=== PATIENT | female | born 1955 | race Caucasian/White ===

== ENCOUNTER 2022-01-09 05:36 | Emergency (ER) | payer MEDICARE, BC ==
[2022-01-09] MEDS ORDERED: Ondansetron 4 MG Tab.DIS PO ONE (05:56)
[2022-01-09] MEDS ORDERED: Meclizine 25 MG Tab PO ONE (05:56)
[2022-01-09 06:51] LABS: CORONAVIRUS COVID-19 NAA POSITIVE (NEGATIVE)
[2022-01-09] MEDS ORDERED: Hydrochlorothiazide 12.5 MG Cap PO SCH (07:00)
[2022-01-09] MEDS ORDERED: Lisinopril 10 MG Tab PO SCH (07:00)
== END 2022-01-09 08:14 | disposition home or self-care (01) ==
LOC: JP.ED 05:36
DX: U07.1 COVID-19 (principal); I10 Essential (primary) hypertension; R73.9 Hyperglycemia, unspecified; Z79.899 Other long term (current) drug therapy
CPT/HCPCS: 0241U; 36415; 70450; 80048; 85025; 93005; 99284; A9270; Q0162

== ENCOUNTER 2022-01-10 13:15 | Inpatient (IN) | payer MEDICARE, BC ==
[2022-01-10 15:11] LABS: ESTIMATED GFR 70 mL/min (>60)
[2022-01-10] MEDS ORDERED: Sodium Chloride 0.9% 100 ML IV SCH (15:45)
[2022-01-10] MEDS ORDERED: Iopamidol 755 Mg/ML 100 ML Bottle IV SCH (15:45)
[2022-01-10] MEDS ORDERED: Aspirin 325 MG Tab.EC PO ONE (17:13)
[2022-01-10] MEDS ORDERED: Sodium Chloride 0.9% 1,000 ML IV SCH (17:15)
[2022-01-10] MEDS: Clopidogrel 75 MG Tab PO SCH (17:36)
[2022-01-10] MEDS: Aspirin 325 MG Tab.EC PO SCH (17:36)
[2022-01-10] MEDS ORDERED: Sodium Chloride 0.9% 10 ML Syringe FLUSH PRN (18:03)
[2022-01-10] MEDS ORDERED: Ondansetron 4 MG/2 ML SDV IV PRN (18:03)
[2022-01-10] MEDS ORDERED: Melatonin 3 MG Tab PO PRN (20:01)
[2022-01-10] MEDS: Meclizine 25 MG Tab PO PRN (22:49)
[2022-01-11] MEDS: Clopidogrel 75 MG Tab PO SCH (09:16)
[2022-01-11] MEDS: Hydrochlorothiazide 12.5 MG Cap PO SCH (09:16)
[2022-01-11] MEDS: Aspirin 325 MG Tab.EC PO SCH (09:16)
[2022-01-11] MEDS: Lisinopril 10 MG Tab PO SCH (09:25)
[2022-01-11] MEDS: Meclizine 25 MG Tab PO PRN (09:33)
[2022-01-11] MEDS: Acetaminophen 325 MG Tab PO PRN (12:53)
[2022-01-11] MEDS ORDERED: oxyCODONE 5 MG Tab PO PRN (15:13)
[2022-01-11] MEDS: Diazepam 2 MG Tab PO PRN ×2 (15:29→23:29)
[2022-01-11] MEDS ORDERED: Insulin Lispro 100 Unit/ML 3 ML KwikPen SUBCUT SCH (18:30)
[2022-01-11] MEDS: Insulin Lispro 100 Unit/ML 3 ML KwikPen SUBCUT SCH (21:59)
[2022-01-12] MEDS: Diazepam 2 MG Tab PO PRN (05:55)
[2022-01-12] MEDS: Clopidogrel 75 MG Tab PO SCH (08:29)
[2022-01-12] MEDS: Hydrochlorothiazide 12.5 MG Cap PO SCH (08:30)
[2022-01-12] MEDS: Aspirin 325 MG Tab.EC PO SCH (08:30)
[2022-01-12] MEDS: Lisinopril 10 MG Tab PO SCH (08:30)
[2022-01-12] MEDS: Insulin Lispro 100 Unit/ML 3 ML KwikPen SUBCUT SCH ×5 (08:33→21:49)
[2022-01-12] MEDS: Meclizine 25 MG Tab PO PRN (16:22)
[2022-01-12] MEDS ORDERED: 50% Dextrose in Water 50 ML Syringe IV PRN (17:09)
[2022-01-12] MEDS ORDERED: Glucose Gel 15 GM in 37.5 GM Tube PO PRN (17:09)
[2022-01-12] MEDS: Acetaminophen 325 MG Tab PO PRN (19:44)
[2022-01-12] MEDS ORDERED: Insulin Glargine,Human Rec. Analog 100 Units/ML 3 ML Pen SUBCUT SCH (21:00)
[2022-01-12] MEDS ORDERED: Acetaminophen 650 MG Supp RECTAL PRN (22:26)
== END 2022-01-13 01:05 | DRG 64 ==
LOC: JP.ED 13:15 → JP.2SS 17:32 → OBSVTOIN 01-11 15:43 → JP.MS 01-12 10:07 → JP.2SS 01-12 11:15
PROVIDERS: ADMIT Hospitalist; ATTEND Hospitalist
DX: I63.9 Cerebral infarction, unspecified (principal); U07.1 COVID-19; G81.94 Hemiplegia, unspecified affecting left nondominant side; R29.703 NIHSS score 3; I10 Essential (primary) hypertension; E11.65 Type 2 diabetes mellitus with hyperglycemia; Z79.899 Other long term (current) drug therapy
CPT/HCPCS: 36415; 70450; 70450-26; 70496; 70498; 70551; 80048; 80053; 81001; 82947; 83735; 85025; 85379; 92522-GN; 92610-GN; 93306; 96105-GN; 97110-GP; 97112-GP; 97163-GP; 97530-GP; A9270-GY; J1815; J1815-GY; J2405; J3360; J3490; J7030; Q9967

== ENCOUNTER 2022-08-26 16:38 | Inpatient (IN) | payer MEDICARE, BC ==
[2022-08-26] MEDS ORDERED: Sodium Chloride 0.9% 10 ML Syringe FLUSH PRN (18:26)
[2022-08-26 19:16] LABS: BASOPHILS ABSOLUTE AUTO 0.06 K/uL (0.00-0.10); BASOPHILS PERCENT AUTO 0.9 % (0.1-1.3); EOSINOPHILS ABSOLUTE AUTO 0.12 K/uL (0.00-0.40); EOSINOPHILS PERCENT AUTO 1.8 % (0.0-5.4); HEMATOCRIT 42.2 % (34.3-46.0); HEMOGLOBIN 13.9 g/dL (11.2-15.5); IMMATURE GRAN PERCENT AUTO 0.1 % (0.0-0.7); LYMPHOCYTES ABSOLUTE AUTO 2.14 K/uL (0.8-3.3); LYMPHOCYTES PERCENT AUTO 31.7 % (11.4-47.7); MEAN CORPUSCULAR HEMOGLOBIN 28.5 pg (31.6-35.5); MEAN CORPUSCULAR HGB CONC 32.9 g/dL (31.6-35.5); MEAN CORPUSCULAR VOLUME 86.7 fL (81.4-99.0); MONOCYTES ABSOLUTE AUTO 0.67 K/uL (0.20-0.90); MONOCYTES PERCENT AUTO 9.9 % (3.3-12.6); NEUTROPHILS ABSOLUTE AUTO 3.75 K/uL (1.0-7.6); NEUTROPHILS PERCENT AUTO 55.6 % (40.0-78.1); PLATELET COUNT,PLT 218 K/uL (130-375); RED BLOOD CELL COUNT 4.87 M/uL (3.77-5.24); WHITE BLOOD CELL COUNT,WBC 6.8 K/uL (3.2-11.0)
[2022-08-26 19:17] LABS: IMMATURE GRAN ABSOLUTE AUTO 0.01 K/uL (0.00-0.23)
[2022-08-26 19:45] LABS: ALANINE AMINOTRANSFERASE,ALT 24 U/L (12-78); ALBUMIN 3.8 g/dL (3.4-5.0); ALKALINE PHOSPHATASE 57 U/L (46-116); ASPARTATE AMNIOTRANSFERASE,AST 28 U/L (15-37); BILIRUBIN TOTAL 0.6 mg/dL (0.2-1.0); BLOOD UREA NITROGEN,BUN 8 mg/dL (7-18); C-REACTIVE PROTEIN 0.16 mg/dL (0.0-0.3); CALCIUM 9.8 mg/dL (8.5-10.1); CHLORIDE,CL 102 mmol/L (100-108); EST CRCL DRUG DOSING (CG) 52.36 mL/min; ESTIMATED GFR 61 mL/min (>60); GLUCOSE RANDOM 90 mg/dL (74-106); POTASSIUM,K 3.9 mmol/L (3.6-5.2); PROTEIN TOTAL,TP 7.7 g/dL (6.4-8.2); SODIUM,NA 138 mmol/L (140-148); TSH ULTRASENSITIVE 4.303 uIU/mL (0.358-3.740)
[2022-08-26 19:51] LABS: ANION GAP 24.9 mmol/L (5.0-14.0); CARBON DIOXIDE,CO2 15 mmol/L (21-32)
[2022-08-26 20:21] LABS: APPEARANCE,URINE CLEAR (CLEAR); BILIRUBIN,URINE MODERATE (NEGATIVE); COLOR,URINE YELLOW (YELLOW); GLUCOSE,URINE NEGATIVE (NEGATIVE); KETONES,URINE >=160 mg/dL (NEGATIVE); LEUKOCYTE ESTERASE,URINE NEGATIVE (NEGATIVE); NITRITE,URINE NEGATIVE (NEGATIVE); OCCULT BLOOD,URINE NEGATIVE (NEGATIVE); PH,URINE 5.5 (5.0-8.0); PROTEIN,URINE 30 mg/dL (NEGATIVE); UROBILINOGEN,URINE 0.2 EU/dL (0.2-1.0)
[2022-08-26 20:27] LABS: AMORPHOUS SEDIMENT,URINE NOT SEEN; BACTERIA,URINE RARE; EPITHELIAL CELLS,URINE RARE; MUCUS,URINE NOT SEEN; RBC,URINE 0-5 (0-5); WBC,URINE 0-5 (0-5)
[2022-08-26] MEDS ORDERED: Ondansetron 4 MG/2 ML SDV IV PRN (23:33)
[2022-08-26] MEDS ORDERED: Sennosides/Docusate Sodium 50-8.6 MG Tab PO PRN (23:33)
[2022-08-26] MEDS ORDERED: Insulin Lispro 100 Unit/ML 3 ML KwikPen SUBCUT SCH (23:33)
[2022-08-26] MEDS ORDERED: Magnesium Hydroxide 400 MG/5 ML Susp 30 ML Cup PO PRN (23:33)
[2022-08-26] MEDS ORDERED: Melatonin 3 MG Tab PO PRN (23:33)
[2022-08-26] MEDS ORDERED: Pantoprazole 40 MG Tab.CR PO SCH ×2 (23:33)
[2022-08-26] MEDS ORDERED: Ondansetron 4 MG Tab.DIS PO PRN (23:33)
[2022-08-26] MEDS: Sodium Chloride 0.9% 1,000 ML IV SCH (23:58)
[2022-08-27] MEDS: Acetaminophen 325 MG Tab PO PRN ×2 (04:16→09:31)
[2022-08-27 05:17] LABS: BASOPHILS ABSOLUTE AUTO 0.06 K/uL (0.00-0.10); BASOPHILS PERCENT AUTO 0.9 % (0.1-1.3); EOSINOPHILS ABSOLUTE AUTO 0.17 K/uL (0.00-0.40); EOSINOPHILS PERCENT AUTO 2.7 % (0.0-5.4); HEMATOCRIT 38.9 % (34.3-46.0); HEMOGLOBIN 12.8 g/dL (11.2-15.5); IMMATURE GRAN PERCENT AUTO 0.2 % (0.0-0.7); LYMPHOCYTES ABSOLUTE AUTO 2.12 K/uL (0.8-3.3); LYMPHOCYTES PERCENT AUTO 33.4 % (11.4-47.7); MEAN CORPUSCULAR HEMOGLOBIN 28.2 pg (31.6-35.5); MEAN CORPUSCULAR HGB CONC 32.9 g/dL (31.6-35.5); MEAN CORPUSCULAR VOLUME 85.7 fL (81.4-99.0); MONOCYTES ABSOLUTE AUTO 0.62 K/uL (0.20-0.90); MONOCYTES PERCENT AUTO 9.8 % (3.3-12.6); NEUTROPHILS ABSOLUTE AUTO 3.36 K/uL (1.0-7.6); PLATELET COUNT,PLT 197 K/uL (130-375); RED BLOOD CELL COUNT 4.54 M/uL (3.77-5.24); WHITE BLOOD CELL COUNT,WBC 6.3 K/uL (3.2-11.0)
[2022-08-27 05:19] LABS: IMMATURE GRAN ABSOLUTE AUTO 0.01 K/uL (0.00-0.23)
[2022-08-27 05:30] LABS: CALCIUM 9.4 mg/dL (8.5-10.1); EST CRCL DRUG DOSING (CG) 52.36 mL/min; POTASSIUM,K 3.5 mmol/L (3.6-5.2)
[2022-08-27 05:35] LABS: ANION GAP 21.5 mmol/L (5.0-14.0)
[2022-08-27] MEDS ORDERED: Pantoprazole 40 MG Tab.CR PO SCH ×2 (07:30→16:30)
[2022-08-27] MEDS ORDERED: Pentoxifylline 400 MG Tab.ER PO SCH ×2 (08:00)
[2022-08-27] MEDS ORDERED: Gabapentin 100 MG Cap PO SCH ×2 (09:00→14:00)
[2022-08-27] MEDS ORDERED: NS + KCl 20mEq/L 1,000 ML IV SCH (10:30)
[2022-08-27] MEDS: Enoxaparin 40 MG/0.4 ML Syringe SUBCUT SCH ×2 (12:50→12:58)
[2022-08-27] MEDS: Magnesium Oxide 400 MG Tab PO SCH (12:51)
[2022-08-27] MEDS: Aspirin 81 MG Tab.Chew PO SCH (12:51)
[2022-08-27] MEDS: Sodium Chloride 0.9% 1,000 ML IV SCH (13:57)
[2022-08-27] MEDS: Potassium Chloride 10 MEQ in Premix Bag 1 BAG IV SCH ×2 (13:58→13:59)
[2022-08-27] MEDS: Gabapentin 100 MG Cap PO SCH ×3 (13:59→22:04)
[2022-08-27] MEDS: Pantoprazole 40 MG Tab.CR PO SCH (15:33)
[2022-08-27] MEDS: Pentoxifylline 400 MG Tab.ER PO SCH (16:37)
[2022-08-27] MEDS: atorvaSTATin 20 MG Tab PO SCH ×2 (20:33→22:01)
[2022-08-27] MEDS ORDERED: atorvaSTATin 20 MG Tab PO SCH ×2 (21:00)
[2022-08-28 05:50] LABS: HEMATOCRIT 37.6 % (34.3-46.0); HEMOGLOBIN 12.4 g/dL (11.2-15.5); MEAN CORPUSCULAR HEMOGLOBIN 28.2 pg (31.6-35.5); MEAN CORPUSCULAR VOLUME 85.6 fL (81.4-99.0); RED BLOOD CELL COUNT 4.39 M/uL (3.77-5.24); WHITE BLOOD CELL COUNT,WBC 6.1 K/uL (3.2-11.0)
[2022-08-28 06:12] LABS: CALCIUM 9.1 mg/dL (8.5-10.1); CREATININE 0.9 mg/dL (0.6-1.0); EST CRCL DRUG DOSING (CG) 58.02 mL/min; POTASSIUM,K 3.5 mmol/L (3.6-5.2)
[2022-08-28 06:15] LABS: ANION GAP 15.5 mmol/L (5.0-14.0)
[2022-08-28] MEDS: Pentoxifylline 400 MG Tab.ER PO SCH ×2 (07:38→17:39)
[2022-08-28] MEDS: Pantoprazole 40 MG Tab.CR PO SCH ×2 (07:39→17:38)
[2022-08-28] MEDS: Magnesium Oxide 400 MG Tab PO SCH (08:56)
[2022-08-28] MEDS: Gabapentin 100 MG Cap PO SCH ×3 (08:56→20:03)
[2022-08-28] MEDS: Aspirin 81 MG Tab.Chew PO SCH (08:56)
[2022-08-28] MEDS: Potassium Chloride 10 MEQ in Premix Bag 1 BAG IV SCH ×4 (09:45→12:05)
[2022-08-28] MEDS: Enoxaparin 40 MG/0.4 ML Syringe SUBCUT SCH (12:10)
[2022-08-28] MEDS: atorvaSTATin 20 MG Tab PO SCH (20:03)
[2022-08-29] MEDS: Pentoxifylline 400 MG Tab.ER PO SCH ×2 (08:17→17:13)
[2022-08-29] MEDS: Aspirin 81 MG Tab.Chew PO SCH (08:17)
[2022-08-29] MEDS: Pantoprazole 40 MG Tab.CR PO SCH ×2 (08:17→17:13)
[2022-08-29] MEDS: Gabapentin 100 MG Cap PO SCH ×3 (08:17→20:28)
[2022-08-29] MEDS: Magnesium Oxide 400 MG Tab PO SCH (08:18)
[2022-08-29] MEDS: Meclizine 25 MG Tab PO PRN (11:08)
[2022-08-29] MEDS: atorvaSTATin 20 MG Tab PO SCH (20:28)
[2022-08-30] MEDS: Acetaminophen 325 MG Tab PO PRN (05:02)
[2022-08-30] MEDS: Pantoprazole 40 MG Tab.CR PO SCH (08:22)
[2022-08-30] MEDS: Pentoxifylline 400 MG Tab.ER PO SCH (08:22)
[2022-08-30] MEDS: Gabapentin 100 MG Cap PO SCH (08:22)
[2022-08-30] MEDS: Magnesium Oxide 400 MG Tab PO SCH (08:23)
[2022-08-30] MEDS: Aspirin 81 MG Tab.Chew PO SCH (08:23)
[2022-08-30] MEDS: Meclizine 25 MG Tab PO PRN (08:28)
== END 2022-08-30 12:00 | disposition home or self-care (01) | DRG 178 ==
LOC: JP.ED 16:38 → JP.ICU 23:04 → OBSVTOIN 08-27 11:23
PROVIDERS: ADMIT Hospitalist; ATTEND Internal Medicine
DX: U07.1 COVID-19 (principal); I69.354 Hemiplegia and hemiparesis following cerebral infarction affecting left non-dominant side; R62.7 Adult failure to thrive; I69.322 Dysarthria following cerebral infarction; I69.391 Dysphagia following cerebral infarction; R13.10 Dysphagia, unspecified; Z79.82 Long term (current) use of aspirin; H54.7 Unspecified visual loss; E78.00 Pure hypercholesterolemia, unspecified; E11.51 Type 2 diabetes mellitus with diabetic peripheral angiopathy without gangrene; R19.7 Diarrhea, unspecified; Z86.718 Personal history of other venous thrombosis and embolism; Z79.84 Long term (current) use of oral hypoglycemic drugs; Z79.899 Other long term (current) drug therapy; Z68.22 Body mass index [BMI] 22.0-22.9, adult
CPT/HCPCS: 36415; 71045; 71045-26; 80048; 80053; 81001; 82947; 83605; 84443; 85025; 85027; 86140; 92610-GN; 97110-GP; 97116-GP; 97161-GP; 97166-GO; 97530-GP; 99285; A9270-GY; G0378; J1650; J1815; J3480; J7030; U0002